=== PATIENT | female | born 1965 | race Caucasian/White ===

== ENCOUNTER 2019-07-28 11:39 | Emergency (ER) | payer OTHER ==
[~2019-07-28] VITALS: Ht 165.1 cm; Wt 65.8 kg
--- NOTE | 2019-07-28 11:50 | NUR ---
Dr Elam at the bedside for MSE. Ice pack applied to Lt hip and Rt wrist.
[2019-07-28] MEDS ORDERED: IBUPROFEN 600 MG TABLET ONE (12:22)
[2019-07-28] MEDS ORDERED: IBUPROFEN 600 MG TABLET PO ONE (12:30)
[2019-07-28 12:36] VITALS: BP 122/60
--- NOTE | 2019-07-28 12:39 | NUR ---
Patient discharged to home in stable conditon. Written and verbal after care instructions given. Patient verbalizes understanding of instructions.
== END 2019-07-28 12:45 | disposition home or self-care (01) ==
LOC: ER 11:39
DX: S63.501A Unspecified sprain of right wrist, initial encounter (principal); S70.12XA Contusion of left thigh, initial encounter; V49.9XXA Car occupant (driver) (passenger) injured in unspecified traffic accident, initial encounter; Y93.89 Activity, other specified; Y92.89 Other specified places as the place of occurrence of the external cause; Y99.8 Other external cause status
CPT/HCPCS: 73110; 73551; A4663